=== PATIENT | male | born 1960 | race Caucasian/White ===

== ENCOUNTER → 2018-10-07 11:54 | Outpatient (CLI) | payer BC, SELFPAY ==
--- NOTE | 2018-10-07 12:03 | RAD_ITS ---
STUDY: X-RAY - LUMBAR SPINE REASON FOR EXAM: Male, 58 years old. Back pain. TECHNIQUE: 5 view(s) of the lumbar spine were obtained. COMPARISON: None FINDINGS: Normal lumbar lordosis. There is no substantial scoliosis. There is a normal alignment of the vertebrae. There is multilevel endplate spondylosis of the lumbar vertebrae. Normal disc space heights. The soft tissue structures are unremarkable. RAD/L/S Spine Min 4 Views IMPRESSION: Mild degenerative changes. Electronically Signed: Sulma Mike MD at 8:22 EDT Tel , Service support ,
== END ==
PROVIDERS: Family Provider Family Medicine; PCP Family Medicine; Referring Provider Nurse Practitioner Adult Health; Visit Provider Nurse Practitioner Adult Health
DX: M54.5 Low back pain (principal)
CPT/HCPCS: 72110

== ENCOUNTER → 2018-12-17 | Outpatient (CLI) | payer BC, SELFPAY ==
--- NOTE | 2018-12-17 15:45 | RAD_ITS ---
STUDY: X-RAY - RIGHT ANKLE REASON FOR EXAM: Male, 58 years old. Injury 3 months ago, continued pain TECHNIQUE: 3 view(s) of the ankle. COMPARISON: None. FINDINGS: Normal visualized distal tibia and fibula. Normal medial and lateral malleoli. Normal tibiotalar articulation and ankle mortise. Normal visualized talus and calcaneus. The visualized subtalar, talonavicular, calcaneocuboid and tarsal articulations are normal. The soft tissue structures are unremarkable. RAD/Ankle min 3 Views IMPRESSION: Normal x-ray examination of the ankle. Electronically Signed: Donavon Nye MD at 16:42 EDT , Service support ,
== END | disposition home or self-care (01) ==
PROVIDERS: Family Provider Family Medicine; PCP Family Medicine; Referring Provider Physician Assistant Medical; Visit Provider Physician Assistant Medical
DX: M79.661 Pain in right lower leg (principal)
CPT/HCPCS: 73610

== ENCOUNTER → 2019-01-06 | Outpatient (CLI) | payer OTHER, SELFPAY ==
--- NOTE | 2019-01-06 16:59 | MRI_ITS ---
HISTORY:RIGHT ankle pain s/p injury 3 months ago. Most pain is lateral MRI EXAMINATION OF THE Right ANKLE COMPARISON: Radiographs of the right ankle obtained on December 17, 2018 TECHNIQUE: Axial T1 and T2, sagittal T1 and STIR and coronal fat-suppressed T2 # of images including paperwork:189 FINDINGS: BONES; there is marrow edema with overlying full-thickness articular cartilage loss involving the anteromedial tibial plafond seen in sagittal image 13 series 6 and coronal image 18 series 4. This area measures approximately 5.4 mm transverse and approximately 3.8 cm AP There is also subchondral edema that is seen within the anterior medial talus seen on sagittal image 9 series 6 with overlying articular cartilage loss extending approximately 1.2 cm AP There is also subchondral edema that is seen at the medial aspect of the medial malleolus.. There is no evidence of an acute fracture or dislocation TIBIOTALAR JOINT: There is a minimal joint effusion. Narrowing of the tibiotalar joint.. No loose bodies. SUBTALAR JOINT: There is no subtalar joint effusion. Osteochondral sufaces are intact. No loose bodies. There is narrowing at the posterior facet of the subtalar joint with partial thickness articular cartilage loss seen at the posterior aspect of the talus. There is also minimal subchondral edema is seen at the talus at the middle facet OTHER TARSAL JOINTS: The remainter of the visualized joint of the hindfoot and midfoot show no narrowing or effusion. LIGAMENTS: The anterior tibiofibular ligament is intact. The posterior tlbiofilular ligament is intact The anterior talofibular ligament is intact. There is a small ossicle that is seen deep to the anterior talofibular ligament and I suspect is contained within the ligament The posterior talofibular ligament is intact. The calcaneofibular ligament is intact. The deltoid ligaments are intact. The ligaments of the tarasal sinus are intact. TENDONS: There is fluid surrounding the flexor hallucis longus tendon and muscle at the musculotendinous junction extending distally to the level of the mid calcaneus. Minimal fluid is seen surrounding the flexor hallucis longus and the flexor digitorum tendon at the master knot of Sarbjit. No evidence of tendon tear is noted. There is also minimal fluid surrounding the posterior tibial tendon just distal to the ankle joint. Again no evidence of a tear of the tendons. There is abnormal signal that is seen within the peroneus brevis tendon just past the lateral malleolus with a near full split thickness tear. The tendon is visualized again in its entirety at the level of the distal calcaneus. Minimal fluid surrounds the peroneus brevis tendon at the level of the distal calcaneus. The flexor retinaculum is intact however I do suspect there is minimal stripping at the posterior fibula. The extensor tendons are intact The Achilles tendon is intact PLANTAR APONEUROSIS: The plantar aponeurosis is unremarkable. NEUROVASCULAR STRUCTURES: The posterior tibial neurovascular bundle appears normal, without intinsic or extrinsic masses or foci or signal alteration. IMPRESSION: Findings compatible with at least a partial tear of the peroneus brevis tendon just distal to the lateral malleolus with associated tenosynovitis. Probable mild tenosynovitis involving the posterior tibial as well as the flexor hallucis and flexor digitorum tendons as discussed There is an ossicle that is seen anterior to the distal lateral malleolus and I suspect this is within the anterior talofibular ligament Small tibiotalar joint effusion. There is also articular cartilage loss seen at the anterior medial tibia as well as the anterior medial talus as discussed at 1936 Reported and signed by: Sumi Hodges DO Electronically Signed: Sumi Hodges DO at 19:35 EDT Tel , Service support , MRI/Lower Ext Joint Only (Routine)
== END | disposition home or self-care (01) ==
PROVIDERS: Family Provider Family Medicine; PCP Family Medicine; Referring Provider Physician Assistant Surgical; Visit Provider Physician Assistant Surgical
DX: S93.401A Sprain of unspecified ligament of right ankle, initial encounter (principal)
CPT/HCPCS: 73721

== ENCOUNTER → 2019-05-22 | Outpatient (CLI) | payer BC, SELFPAY ==
[2019-01-09 14:01] VITALS: BMI 26.4
--- NOTE | 2019-05-22 08:30 | MRI_ITS ---
STUDY: MRI BRAIN WITH AND WITHOUT CONTRAST REASON FOR EXAM: Male, 59 years old. Blurry vision, visual loss TECHNIQUE: Standardized multiplanar fat and water weighted pulse sequences were obtained. IV Dotarem 19 was administered for the contrast portion of the examination. COMPARISON: None. FINDINGS: There is mild cerebral atrophy with widening of the extra-axial spaces and ventricular dilatation. Normal white matter tracts of the supratentorial brain. There is no evidence for recent intracranial ischemia or other cause of cytotoxic edema on diffusion weighted imaging (DWI). Normal T2* images of the brain without demonstrated susceptibility artifact. There is no demonstrated hemosiderin stain. Normal bilateral basal ganglia. Normal thalami. There is no extra-axial fluid accumulation. Normal flow voids within the major intracranial circulation suggesting patency by spin echo criteria. Normal venous enhancement. There is no enhancing intra-axial or extra-axial abnormality. 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 Differential diagnosis includes pituitary macroadenoma, pituitary metastasis, craniopharyngioma, or meningioma. Normal tectal plate and pineal gland. Normal midbrain, sandy and medulla. Normal cerebellum. Normal basal cisterns. Normal bilateral temporal bones. Normal bilateral internal auditory canals. No demonstrated orbital abnormality, within the constraints of a routine brain study. Normal visualized paranasal sinuses. Normal calvarium and skull base. Normal visualized soft tissue structures. Normal visualized upper cervical spine. MRI/Brain W/WO Contrast IMPRESSION: 2.0 x 2.0 x 4.0 cm solidly enhancing mass seemingly arising from the right side of the sella turcica with significant suprasellar extension and superior effacement of the optic chiasm. Differential diagnosis includes pituitary macroadenoma, metastasis, meningioma, or craniopharyngioma per Electronically Signed: Gilberto Ashley MD at 13:54 EST Tel , Service support ,
== END | disposition home or self-care (01) ==
PROVIDERS: Family Provider Family Medicine; PCP Family Medicine; Referring Provider Ophthalmology; Visit Provider Ophthalmology
DX: H53.47 Heteronymous bilateral field defects (principal)
CPT/HCPCS: 70553; A9575

== ENCOUNTER → 2019-09-07 | Outpatient (CLI) | payer BC, SELFPAY ==
[2019-01-09 14:01] VITALS: BMI 26.4
[2019-09-07 14:18] LABS: Absolute Lymphocyte Count 0.84 X10^3/uL (0.83-4.51); Absolute Neutrophil Count 4.9 X10^3/uL (2.0-7.7); Basophil# 0.02 X10^3/uL; Basophil% 0.3 % (0-1); Eosinophil# 0.02 X10^3/uL; Eosinophils% 0.3 % (0-5); Hematocrit 49.3 % (40-54); Hemoglobin 15.7 g/dL (13.0-16.5); Lymphocyte # 0.84 X10^3/ul (4.0); Lymphocyte % 13.4 % (19-41); Mean Corp Hgb Conc 31.8 g/dL (32-36); Mean Corpuscular Hgb 29.3 pg (27.0-32.0); Mean Platelet Vol. 10.4 fl (6.2-12.0); Monocyte# 0.43 X10^3/uL; Monocyte% 6.9 % (0-10); NRBC Flagged by Analyzer 0 % (0-5); Neutrophil # 4.94 X10^3/uL (2.7-7.7); Neutrophil % 78.9 % (47-70); Platelet Count 301 K/mm3 (150-450); RBC Distribution Width SD 43.9 fl (35.1-43.9); Red Blood Count 5.36 M/mm3 (4.6-6.2); White Blood Count 6.3 K/mm3 (4.4-11.0)
[2019-09-07 15:07] LABS: ALB/GLOB Ratio 1.2 RATIO (0.9-2.4); AST(SGOT) 11 U/L (15-37); Alanine Aminotransfer ALT/SGPT 29 U/L (16-61); Alkaline Phosphatase 72 U/L (45-117); Anion Gap 8 (5-15); BUN 11 mg/dL (7-18); BUN/Creat Ratio 9.8 RATIO (10-20); Calcium,Total 9.1 mg/dL (8.5-10.1); Chloride 105 mmol/L (98-107); Creatinine, Serum 1.12 mg/dL (0.70-1.30); EST Glomerular Filtration Rate 72 mL/min (>60); Est Glom Filt Rate - Afr Amer 87 mL/min (>60); Free T3 2.7 pg/mL (2.18-3.98); Globulin 3.3 g/dL (2.2-4.2); Glucose 111 mg/dL (74-106); Potassium 4.1 mmol/L (3.5-5.1); Prolactin 3.9 ng/mL; Protein, Total 7.3 g/dL (6.4-8.2); Sodium Level 140 mmol/L (136-145); T4 Free Direct 1.01 ng/dL (0.76-1.46); Thyroid Stim Hormone (TSH) 0.79 uIU/mL (0.358-3.74)
[2019-09-09 20:03] LABS: Adrenocorticotropic Hormone 4.9 pg/mL (7.2-63.3)
== END | disposition home or self-care (01) ==
LOC: MFPLAB 12:24
PROVIDERS: PCP Family Medicine; Referring Provider Family Medicine
DX: E23.6 Other disorders of pituitary gland (principal)
CPT/HCPCS: 36415; 80053; 82024; 84146; 84439; 84443; 84481; 85025

== ENCOUNTER → 2019-10-28 08:50 | Outpatient (CLI) | payer BC, SELFPAY ==
[2019-10-27 09:10] VITALS: BMI 26.4
[2019-10-28 10:31] LABS: Follicle Stimulating Hormone 6.8 mIU/mL; Free T3 3.1 pg/mL (2.18-3.98); Luteinizing Hormone 3.8 mIU/mL; T4 Free Direct 1.03 ng/dL (0.76-1.46); Thyroid Stim Hormone (TSH) 1.05 uIU/mL (0.358-3.74)
[2019-10-31 16:12] LABS: Testosterone, % Free 2.07 % (1.50-4.20); Testosterone, Free 10.58 ng/dL (5.00-21.00)
[2019-11-01 08:11] LABS: Adrenocorticotropic Hormone 31.2 pg/mL (7.2-63.3); Somatomedin C 271 ng/mL (54-194); Testosterone, Total 511 ng/dL (264-916)
== END ==
PROVIDERS: PCP Family Medicine; Referring Provider Internal Medicine Endocrinology, Diabetes & Metabolism; Visit Provider Internal Medicine Endocrinology, Diabetes & Metabolism
DX: E89.3 Postprocedural hypopituitarism (principal); E34.9 Endocrine disorder, unspecified
CPT/HCPCS: 36415; 82024; 82533; 83001; 83002; 84305; 84402; 84403; 84439; 84443; 84481

== ENCOUNTER → 2019-11-26 | Outpatient (CLI) | payer BC, SELFPAY ==
[2019-10-27 09:10] VITALS: BMI 26.4
--- NOTE | 2019-11-26 16:25 | RAD_ITS ---
STUDY: X-RAY CHEST REASON FOR EXAM: Male, 59 years old. Cough TECHNIQUE: Single frontal view of the chest. COMPARISON: 11/25/2013 FINDINGS: Cardiac silhouette unremarkable. Pulmonary vascularity unremarkable. Aorta unremarkable. No focal airspace opacities. No pleural effusions. Upper abdomen unremarkable. Osseous structures intact. No pneumothorax. RAD/Chest PA and Lateral IMPRESSION: No acute cardiopulmonary findings Electronically Signed: Keyon Greene, at 22:00 EDT Tel , Service support ,
== END | disposition home or self-care (01) ==
LOC: MTRAD 16:24
PROVIDERS: PCP Family Medicine; Referring Provider Family Medicine; Visit Provider Family Medicine
DX: R05 Cough (principal)
CPT/HCPCS: 71046

== ENCOUNTER → 2019-12-11 | Outpatient (CLI) | payer BC, SELFPAY ==
[2019-10-27 09:10] VITALS: BMI 26.4
== END | disposition home or self-care (01) ==
PROVIDERS: PCP Family Medicine; Referring Provider Internal Medicine Endocrinology, Diabetes & Metabolism; Visit Provider Internal Medicine Endocrinology, Diabetes & Metabolism
DX: D35.2 Benign neoplasm of pituitary gland (principal)
CPT/HCPCS: 36415; 83003

== ENCOUNTER 2020-05-31 12:00 | Outpatient (RCR) | payer BC, SELFPAY ==
[2019-10-27 09:10] VITALS: BMI 26.4
--- NOTE | 2020-05-02 15:08 | HP.PTEVAL_ITS ---
Patient's Visit Information LEONOR ALARCON is a 60 year old M referred to Physical Therapy by Dr. Benita Chauhan MD with a diagnosis of BACKACHE. Date of Evaluation: 04/29/20 Physical Therapist: Andrade Prasad PT, Cert MDT, OCS - Visit Plan Frequency: 2x /Week Duration: 4 Weeks Plan: PT INTERVNTIONS HUSAM EX'S,DLS ABD/BACK ,LE FLEXABITY ,POSTURAL EX'S,MODALTIES - Subjective This 60 y/o male presents to physical therapy with lumbar pain .Patient lumbar pain with radicular symptoms about 5 months. Patient symptoms radiate to thigh and calf. Patient seen DR recommended PT. Aggraveting factors walking,lifting ,bending.Alleviating factors standing.Patient has seen chiropractor . Bowel/bladder -. Parathesia in thigh. Coughing/sneezing -. Patient had prior PT in past. Patient able to sleep at night okay. Patient symptoms affects ADL's and housework tasks. Patient condition affects QOL. Patient had no x-ray-s . SOCIAL: . VOCATION: [employer] - Pain Bilateral Back Pain Intensity (Out of 10): 3 Pain Intensity Range: 10 Left Lower Extremity Pain Intensity (Out of 10): 3 Pain Intensity Range: 10 Comment: anterior thigh - Objective POSTURE: mild foward posture. GAIT: reciprocal pattern. NEURO: denies parathesia/tingling reflexes L3-4,L4-L5,L5-S1 1/3. SYMMTRIES: align. FLEXABLITY: hams mild tight. MMT: quads/hams/hip 4/5,ankle 5/5. LUMBAR FLEXION : flexion WFL,extension min tight,side glides min tight - Special Tests L/S Slump test left side: Negative L/S Slump test right side: Negative L/S Left Straight Leg Raise: Negative L/S Right Straight Leg Raise: Negative Lumbar Standing: Flexion - Mechanical Response: No effect Lumbar Standing: Flexion - Symptoms During Testing: Increases Lumbar Standing: Flexion - Symptoms After Testing: Worse Comments:: CALF Lumbar Standing: Extension - Mechanical Response: No effect Lumbar Standing: Extension - Symptoms During Testing: Increases Lumbar Standing: Extension - Symptoms After Testing: Centralized Comments:: BACK Lumbar Standing: Right Side Glides - Mechanical Response: Increases motion Lumbar Standing: Right Side [place] - Symptoms During Testing: No effect Lumbar Standing: Right Side [place] - Symptoms After Testing: No effect Lumbar Standing: Left Side [place] - Mechanical Response: No effect Lumbar Standing: Left Side [place] - Symptoms During Testing: No effect Lumbar Standing: Left Side [place] - Symptoms After Testing: No effect Lumbar Lying: Flexion - Mechanical Response: No effect Lumbar Lying: Flexion - Symptoms During Testing: No effect Lumbar Lying: Flexion - Symptoms After Testing: No effect Lumbar Lying: Extension - Mechanical Response: No effect Lumbar Lying: Extension - Symptoms During Testing: Decreases Lumbar Lying: Extension - Symptoms After Testing: No effect - Goals Goal 1:: I with HEP Goal Time Frame: 4-6 Weeks Goal 2:: Improve posture/body mechanics for function. Goal Time Frame: 4-6 Weeks Goal 3:: Patient to decrease lumbar radiculopathy by 70 % or > to improve function. Goal Time Frame: 4-6 Weeks Goal 4:: Patient to improve lumbar ROM for function of recovery Goal Time Frame: 4-6 Weeks Goal 5:: Patient to improve back owestry by 5 points or > to improve function. Goal Time Frame: 4-6 Weeks - Rehabilitation Potential Physical Therapy Diagnosis: This patient appears to have derrangement below knee better with posture correction and extension worse with flexion thus benifit from skilled PT Rehabilitation Potential: Good - Anticipated Interventions Patient/Client Instruction: Educate patient on: Condition, Plan of Care For the Purpose of:: To decrease pain, To increase ROM, To improve muscle performance and motor function, To improve ability to perform ADL's, To increase tolerance to activity/condition/position, To improve ability of physical actions for home/community/work/leisure, To improve gait and locomotor functions, To increase flexibility/ROM, To reduce risk of recurrence, To improve ability to perform tasks related to life management Therapeutic Exercise to Include: Strength training, Postural training, Flexibilty training, Dynamic Lumbar Stabilization, Husam Exercises For the Purpose of:: To decrease pain, To increase ROM, To improve muscle performance and motor function, To increase tolerance to activity/condition/position, To improve ability of physical actions for home/community/work/leisure, To improve health of tissue, To decrease soft tiss ue restriction, To increase flexibility/ROM, To improve ability to perform tasks related to life management TENS: Yes IF ES: Yes Cryotherapy (ice pack, ice massage): Yes Thermo therapy (hot pack): Yes Ultrasound (thermal/non thermal): Yes For the Purpose of:: To decrease pain, To increase ROM, To improve health of tissue, To decrease soft tissue restriction Thank you for the opportunity to evaluate your patient. For Medicare and Medicare HMO plans, please review the plan of care and approve it. It will need to be FAXED BACK to us at [phone] for Medicare purposes. For Medicare only, by signing this I certify the plan of care. Please let me know if there are questions or concerns regarding this plan of care. Physician Signature: Date:
--- NOTE | 2020-05-31 12:37 | HP.PTDCSUM ---
It has been my pleasure to treat LEONOR ALARCON referred by Dr. Benita Chauhan MD, with the diagnosis of BACKACHE for a total of 9 visit(s). Discharge Date: 05/31/20 Please see the following information for a summary of their discharge status. Subjective: Patient doing well .. no pain.. Ready to be d/c to HEP. Bilateral Back Pain Intensity (Out of 10): 0 Left Lower Extremity Pain Intensity (Out of 10): 0 % Improvement: 85 Objective/Function: POSTURE: slouched posture -educated on willi roll. GAIT: normal kaylen. LUMBAR ROM:FLEXION/EXTENSION WFL. MMT: 5/5 BLE QUADS/HAMS/HIP /5 Goal 1:: I with HEP Goal Progress: Goal Met Goal 2:: Improve posture/body mechanics for function. Goal Progress: Goal Met Goal 3:: Patient to decrease lumbar radiculopathy by 70 % or > to improve function. Goal Progress: Goal Met Goal 4:: Patient to improve lumbar ROM for function of recovery Goal Progress: Goal Met Goal 5:: Patient to improve back owestry by 5 points or > to improve function. Goal Progress: Goal Met Plan: D/C Discharge Comments: HEP If there are questions or concerns regarding this patient's physical therapy, please feel free to call me at [phone]. Thank you for the referral of this patient. Sincerely, Andrade Prasad, PT, Cert MDT, OCS
== END 2020-05-31 19:00 | disposition home or self-care (01) ==
LOC: PT 12:00
PROVIDERS: PCP Family Medicine; Referring Provider Family Medicine; Visit Provider Family Medicine
DX: M54.9 Dorsalgia, unspecified (principal)
CPT/HCPCS: 97110; 97162; 97530

== ENCOUNTER → 2020-09-30 10:45 | Outpatient (CLI) | payer BC, SELFPAY ==
[2019-10-27 09:10] VITALS: BMI 26.4
[2020-10-01 09:27] LABS: Eosinophils Count 0.1 x10E3/uL (0.0-0.4)
[2020-10-04 16:08] LABS: Immunoglobulin A 182 mg/dL (90-386); Immunoglobulin G 1067 mg/dL (603-1613); Immunoglobulin M 80 mg/dL (20-172)
[2020-10-04 16:11] LABS: Immunoglobulin E 66 IU/mL (6-495)
== END ==
PROVIDERS: PCP Family Medicine; Referring Provider Family Medicine
DX: T78.40XA Allergy, unspecified, initial encounter (principal)
CPT/HCPCS: 36415; 82784; 82785; 85048

== ENCOUNTER → 2020-11-16 07:49 | Outpatient (CLI) | payer BC, SELFPAY ==
[2019-10-27 09:10] VITALS: BMI 26.4
[2020-11-16 10:56] LABS: AST(SGOT) 11 U/L (15-37); Alanine Aminotransfer ALT/SGPT 22 U/L (16-61); Albumin, Serum 3.8 g/dL (3.2-5.0); Alkaline Phosphatase 62 U/L (45-117); Anion Gap 5 (5-15); BUN 10 mg/dL (7-18); Calcium,Total 8.8 mg/dL (8.5-10.1); Chloride 105 mmol/L (98-107); Creatinine, Serum 1.11 mg/dL (0.70-1.30); EST Glomerular Filtration Rate 72 mL/min (>60); Est Glom Filt Rate - Afr Amer 87 mL/min (>60); Follicle Stimulating Hormone 6.6 mIU/mL; Free T3 3.2 pg/mL (2.18-3.98); Globulin 3.7 g/dL (2.2-4.2); Glucose 101 mg/dL (74-106); Luteinizing Hormone 4.6 mIU/mL; Potassium 3.7 mmol/L (3.5-5.1); Prolactin 6.7 ng/mL; Protein, Total 7.5 g/dL (6.4-8.2); Sodium Level 139 mmol/L (136-145); T4 Free Direct 0.98 ng/dL (0.76-1.46); Thyroid Stim Hormone (TSH) 1.51 uIU/mL (0.358-3.74)
[2020-11-22 12:08] LABS: Testosterone, % Free 3.53 % (1.50-4.20); Testosterone, Free 15.74 ng/dL (5.00-21.00)
[2020-11-22 15:14] LABS: Adrenocorticotropic Hormone 36.2 pg/mL (7.2-63.3); Insulin Like Growth Factor 199 ng/mL (68-247); Testosterone, Total 446 ng/dL (264-916)
== END ==
PROVIDERS: PCP Family Medicine; Referring Provider Internal Medicine Endocrinology, Diabetes & Metabolism; Visit Provider Internal Medicine Endocrinology, Diabetes & Metabolism
DX: E89.3 Postprocedural hypopituitarism (principal); E34.9 Endocrine disorder, unspecified
CPT/HCPCS: 36415; 80053; 82024; 82533; 83001; 83002; 84146; 84305; 84402; 84403; 84439; 84443; 84481

== ENCOUNTER 2021-10-24 08:29 | Outpatient (CLI) | payer BC, SELFPAY ==
[2021-10-24 10:44] LABS: Alanine Aminotransfer ALT/SGPT 24 U/L (16-61); Cholesterol 186 mg/dL (200); EST Glomerular Filtration Rate 81 mL/min (>60); Est Glom Filt Rate - Afr Amer 98 mL/min (>60); High Density Lipoprotein 44 mg/dL; PSA,Total- Diagnostic 6.13 ng/mL (0.0-4.0); Triglycerides 68 mg/dL; Very Low Density Lipoprotein 14 mg/dL (5-40)
[2021-10-24 11:18] LABS: Hepatitis C Antibody Non-Reactive (Nonreactive)
== END 2021-10-24 23:59 | disposition home or self-care (01) ==
LOC: MFPLAB 08:30
PROVIDERS: PCP Family Medicine; Referring Provider Family Medicine; Visit Provider Family Medicine
DX: Z00.00 Encounter for general adult medical examination without abnormal findings (principal); Z11.59 Encounter for screening for other viral diseases; Z12.5 Encounter for screening for malignant neoplasm of prostate
CPT/HCPCS: 36415; 80061; 82565; 84153; 84460; 86803

== ENCOUNTER → 2021-12-12 | Outpatient (CLI) | payer BC, SELFPAY ==
[2021-12-12 13:05] LABS: PSA,Total- Diagnostic 5.07 ng/mL (0.0-4.0)
== END | disposition home or self-care (01) ==
LOC: MFPLAB 11:10
PROVIDERS: PCP Family Medicine; Visit Provider Family Medicine
DX: R97.20 Elevated prostate specific antigen [PSA] (principal)
CPT/HCPCS: 36415; 84153

== ENCOUNTER → 2022-10-22 | Outpatient (CLI) | payer BC, SELFPAY ==
[2022-10-22 12:41] LABS: ALB/GLOB Ratio 1.2 RATIO (0.9-2.4); AST(SGOT) 15 U/L (15-37); Alanine Aminotransfer ALT/SGPT 23 U/L (16-61); Alkaline Phosphatase 65 U/L (45-117); Anion Gap 3 (5-15); BUN 10 mg/dL (7-18); BUN/Creat Ratio 10.2 RATIO (10-20); Chloride 108 mmol/L (98-107); Cholesterol 196 mg/dL (200); Creatinine, Serum 0.98 mg/dL (0.70-1.30); EST Glomerular Filtration Rate 83 mL/min (>60); Est Glom Filt Rate - Afr Amer 100 mL/min (>60); Globulin 3.4 g/dL (2.2-4.2); Glucose 89 mg/dL (74-106); High Density Lipoprotein 44 mg/dL; PSA,Total- Diagnostic 6.24 ng/mL (0.0-4.0); Potassium 3.8 mmol/L (3.5-5.1); Protein, Total 7.4 g/dL (6.4-8.2); Sodium Level 139 mmol/L (136-145); Triglycerides 90 mg/dL; Very Low Density Lipoprotein 18 mg/dL (5-40)
== END | disposition home or self-care (01) ==
LOC: MTLAB 09:19
PROVIDERS: PCP Family Medicine; Referring Provider Family Medicine; Visit Provider Family Medicine
DX: Z00.00 Encounter for general adult medical examination without abnormal findings (principal); R97.20 Elevated prostate specific antigen [PSA]
CPT/HCPCS: 36415; 80053; 80061; 84153

== ENCOUNTER 2023-04-21 17:03 | Emergency (ER) | payer BC, SELFPAY ==
[2023-04-21 17:04] VITALS: BP 142/97; PULSE 92; RESP 14; TEMP 36.2; O2SAT 97; BMI 25.6
--- NOTE | 2023-04-21 17:17 | EDS_ITS ---
<Statement entered by Roxanne Lane MD - 04/21/23 21:00> I have personally performed a face to face assessment of the patient and have reviewed the ULYSSES Note. Patient presents after fall from approximately 3 rungs up on a ladder. Injury occurred a couple hours ago. He did not strike his head and has no loss of consciousness. He complains of pain to his right wrist as well as his right hip. He states his tetanus shot is up-to-date. Head and neck examination feels no external sign of trauma. Heart is regular rate and rhythm. Lung sounds are clear. Abdomen is soft and nontender. Right upper extremity examination reveals hematoma over the extensor surface of the right wrist. There is a superficial laceration. He has good cap refill and can wiggle all fingers. Normal sensation noted. No tenderness at the elbow. Right lower extremity examination reveals mild tenderness to the right hip. Good range of motion and equal leg lengths. X-rays of the right hand, wrist, and right hip are obtained. Per my interpretation no obvious evidence of fracture on any study. Radiology feels there is a cortical irregularity along the proximal surface of the third, fou rth, and fifth metacarpals. Given this with the overlying hematoma wound is cleansed and he is covered with an antibiotic. He is placed in a Velcro wrist splint. He will follow-up with orthopedics. Patient is comfortable with the plan. HPI HPI - Fall History of Present Illness Chief Complaint: Fall Narrative Narrative: A few hours ago patient fell off a stepladder approximately 3 rungs up onto his right side. Knee struck his head but denies LOC. No blood thinners. He has no headache, visual changes, nausea or vomiting. He presents due to right upper extremity pain and his right hip feels tight but he is able to ambulate. No weakness or paresthesias. He has a wound on his right hand that he cleansed and dressed with bacitracin and a bandage. Tetanus is up-to-date. 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 Hypothyroid Home Medications multivitamin,[id number] (Complete Multivitamin tablet) 1 tab PO DAILY 10/15/19 [History Last Taken Unknown] saw palmetto 160 mg capsule 160 mg PO BID 10/15/19 [History Last Taken Unknown] doxycycline hyclate 100 mg tablet 100 mg PO BID 5 days #10 tabs 04/21/23 [Rx Last Taken Unknown] Allergy/AdvReac Type Severity Reaction Status Date / Time levothyroxine sodium Allergy Mild dye Verified 04/21/23 17:06 Penicillins Allergy Mild rash Verified 04/21/23 17:06 Family History Mother CVA (cerebral vascular accident) Diabetes Thyroid cancer Sister Diabetes Hypertension Grandmother Diabetes Father Parkinsons Surgical History History of herniorrhaphy Pituitary mass Status post transsphenoidal hypophysectomy Social History Smoking Status: Never smoker alcohol intake: never substance use type: does not use ROS ROS ED ROS Narrative Eyes: Negative for visual change. GI: Negative for nausea, vomiting. Neuro: Negative for headache, motor/sensory dysfunction. Skin: Positive for wound. Musc: Positive for right shoulder and hand pain, swelling, trauma. Heme: Negative for easy bruising, bleeding, lymphadenopathy. EXAM Physical Exam Narrative Exam Narrative: CONST: Patient sitting in no acute distress. ENT: PERRLA, EOMI, head normocephalic atraumatic, no raccoon eyes or mckee sign, no hemotympanum, no nasal septal hematoma, no CSF otorrhea or rhinorrhea. NECK: Normal inspection. No midline spinal tenderness, no step off or crepitus. RESP: No respiratory distress, CTAB. CVS: Regular rate and rhythm, no murmur, no gallop. Chest wall nontender. ABD: Soft and nontender, no guarding or rebound, nondistended. Back: Normal inspection, no midline tenderness. SKIN: Color normal, no rash, warm, dry, intact. EXTREMITIES: Swelling, abrasion, and tenderness right dorsal hand. Otherwise extremities are nontender, full range of motion, 2+ radial and DP pulses. Compartments soft. NEURO: Oriented x4. PSYCH: Normal affect. Const Vital Signs: 04/21/23 17:04 04/21/23 17:12 Temperature 97.2 F L Temperature Source Temporal Pulse Rate 92 Respiratory Rate 14 Respiratory Effort Normal Non-Labored Respiratory Depth Normal Respiratory Pattern Normal Blood Pressure 142/97 H Blood Pressure Mean 112 Pulse Ox 97 Oxygen Delivery Method Room Air Room Air MDM MDM MDM Narrative Medical decision making narrative: History gathered from: Patient and spouse Patient had a fall off a stepladder onto his right side. He is awake and alert. GCS 15. No signs stable. He has no signs of head injury and is neurologically intact I do not think a CT scan of the brain is indicated. There is abrasion and swelling over the right dorsal hand with tenderness. Neurovascularly intact. He also reports right hip tenderness which I cannot reproduce. There is no shortening or rotation. He is ambulatory. Distal pulses intact. On my interpretation of the right wrist and hand there are no acute fractures or dislocation. Radiology noted cortical irregularity at the bases of the 3/4/5 metacarpals but I cannot appreciate this so I do not think he needs a formal Ortho-Glass splint but will put him in a cock-up wrist splint as well as plans and dressed the hand wound and cover with doxycycline for potential for open fracture. Right hip x-ray is negative. Radiology noted an irregularity of the right greater trochanter not a fracture and this is likely chronic changes. Patient states he is established with [facility] and will call them on Saturday for follow-up . He was discharged in stable condition. Radiography Diagnostic Testing: Clinical Impression(s) from Imaging Studies Hand X-Ray 04/21/23 17:30 IMPRESSION: Cortical irregularity of the bases of the third, fourth, and fifth metacarpals likely indicating nondisplaced, perhaps impacted fractures. Electronically Signed: Marlo Lang DO at 18:16 EDT , Hip/Pelvis X-Ray 04/21/23 17:30 IMPRESSION: Subtle cortical irregularity of the right greater trochanter without discrete fracture identified. A nondisplaced fracture cannot be entirely excluded. Electronically Signed: Marlo Lang DO at 18:18 EDT , Wrist X-Ray 04/21/23 17:30 IMPRESSION: Cortical irregularity of the bases of the third, fourth, and fifth metacarpals likely indicating nondisplaced, perhaps impacted fractures. Electronically Signed: Marlo Lang DO at 18:16 EDT , Discharge Plan Triage Chief Complaint: Fall ED Midlevel Provider: Avani Good ED Provider: Roxanne Lane Dx/Rx/DC Orders Clinical Impression: Fracture of metacarpal, multiple sites, right hand, closed, Contusion of right hip Instructions: ED Closed Hand Fracture (Adult) Prescriptions: New doxycycline hyclate 100 mg tablet 100 mg PO BID 5 Days Qty: 10 0RF No Action Complete Multivitamin Tablet 1 tab PO DAILY saw palmetto 160 mg capsule 160 mg PO BID Rx Instructions: give with meal/snack Primary Care Provider: Vitaliy Batres Referrals: Vitaliy Batres MD [Primary Care Provider] - Chapin Chi MD [Med Staff - Active Staff] - Activity Restrictions/Additional Instructions: Call the orthopedic doctor for follow-up appointment for reevaluation of your hand. Keep the wound clean and covered. If you develop signs of infection like redness swelling pus fever or increased pain come back to the emergency room Disposition Disposition: Home, Self Care
--- NOTE | 2023-04-21 17:30 | RAD_ITS ---
EXAM: XR RIGHT HIP WITH PELVIS WHEN PERFORMED, 2 OR 3 VIEWS CLINICAL INDICATION: pain TECHNIQUE: Two or three views of the right hip with pelvis when performed. COMPARISON: No relevant prior studies available. FINDINGS: BONES/JOINTS: Subtle cortical irregularity of the right greater trochanter without discrete fracture identified. Mild degenerative changes in the lower lumbar spine and symmetrically at the bilateral SI joints. Mild degenerative changes of the bilateral hips with mild acetabular sclerosis and right greater than left acetabular hypertrophy. No widening of the pubic symphysis. SOFT TISSUES: No significant abnormality. No soft tissue swelling or gas. RAD/HIP, UNI W/ Pelvis 2-3 Views IMPRESSION: Subtle cortical irregularity of the right greater trochanter without discrete fracture identified. A nondisplaced fracture cannot be entirely excluded. Electronically Signed: Marlo Lang DO at 18:18 EDT ,
--- NOTE | 2023-04-21 17:30 | RAD_ITS ---
EXAM: XR RIGHT HAND COMPLETE, 3 OR MORE VIEWS CLINICAL INDICATION: pain TECHNIQUE: Frontal, lateral and oblique views of the right hand. COMPARISON: Wrist on the same date. FINDINGS: BONES/JOINTS: Cortical irregularity of the bases of the third, fourth, and fifth metacarpals likely indicating nondisplaced, perhaps impacted fractures. Preservation of the joint space. No sclerotic or destructive changes observed. SOFT TISSUES: Dorsal soft tissue swelling. No radiopaque foreign body. RAD/Hand Min 3 Views IMPRESSION: Cortical irregularity of the bases of the third, fourth, and fifth metacarpals likely indicating nondisplaced, perhaps impacted fractures. Electronically Signed: Marlo Lang DO at 18:16 EDT ,
--- NOTE | 2023-04-21 17:30 | RAD_ITS ---
EXAM: XR RIGHT WRIST COMPLETE, 3 OR MORE VIEWS CLINICAL INDICATION: pain TECHNIQUE: Frontal, lateral and oblique views of the right wrist. COMPARISON: Hand on the same date. FINDINGS: BONES/JOINTS: Cortical irregularity of the bases of the third, fourth, and fifth metacarpals likely indicating nondisplaced, perhaps impacted fractures. Preservation of the joint space. No sclerotic or destructive changes observed. SOFT TISSUES: Significant dorsal soft tissue swelling in the hand and wrist. No radiopaque foreign body. RAD/Wrist min 3 Views IMPRESSION: Cortical irregularity of the bases of the third, fourth, and fifth metacarpals likely indicating nondisplaced, perhaps impacted fractures. Electronically Signed: Marlo Lang DO at 18:16 EDT ,
== END 2023-04-21 18:46 | disposition home or self-care (01) ==
PROVIDERS: Emergency Provider Emergency Medicine; PCP Family Medicine; Visit Provider Emergency Medicine
DX: S62.312A Displaced fracture of base of third metacarpal bone, right hand, initial encounter for closed fracture (principal); S70.01XA Contusion of right hip, initial encounter; E03.9 Hypothyroidism, unspecified; S62.314A Displaced fracture of base of fourth metacarpal bone, right hand, initial encounter for closed fracture; S62.316A Displaced fracture of base of fifth metacarpal bone, right hand, initial encounter for closed fracture; Z79.890 Hormone replacement therapy; W11.XXXA Fall on and from ladder, initial encounter
CPT/HCPCS: 29125; 73110; 73130; 73502; 99283

== ENCOUNTER → 2023-05-17 | Outpatient (CLI) | payer BC, SELFPAY ==
[2023-05-17 10:47] LABS: ALB/GLOB Ratio 1.3 RATIO (0.9-2.4); AST(SGOT) 13 U/L (15-37); Alanine Aminotransfer ALT/SGPT 24 U/L (16-61); Albumin, Serum 4.1 g/dL (3.2-5.0); Alkaline Phosphatase 68 U/L (45-117); Anion Gap 4 (5-15); BUN 14 mg/dL (7-18); BUN/Creat Ratio 14.4 RATIO (10-20); Chloride 107 mmol/L (98-107); Creatinine, Serum 0.98 mg/dL (0.70-1.30); EST Glomerular Filtration Rate 83 mL/min (>60); Est Glom Filt Rate - Afr Amer 101 mL/min (>60); Follicle Stimulating Hormone 10.2 mIU/mL; Free T3 2.3 pg/mL (2.18-3.98); Globulin 3.2 g/dL (2.2-4.2); Glucose 80 mg/dL (74-106); Luteinizing Hormone 4.5 mIU/mL; Protein, Total 7.3 g/dL (6.4-8.2); Sodium Level 139 mmol/L (136-145); T4 Free Direct 0.91 ng/dL (0.76-1.46); Thyroid Stim Hormone (TSH) 1.58 uIU/mL (0.358-3.74)
[2023-05-23 09:09] LABS: Adrenocorticotropic Hormone 37.6 pg/mL (7.2-63.3); Testosterone, % Free 3.18 % (1.50-4.20); Testosterone, Free 12.91 ng/dL (5.00-21.00); Testosterone, Total 406 ng/dL (264-916)
== END | disposition home or self-care (01) ==
LOC: MTLAB 07:14
PROVIDERS: PCP Family Medicine; Referring Provider Internal Medicine Endocrinology, Diabetes & Metabolism; Visit Provider Internal Medicine Endocrinology, Diabetes & Metabolism
DX: E89.3 Postprocedural hypopituitarism (principal)
CPT/HCPCS: 36415; 80053; 82024; 82533; 83001; 83002; 84402; 84403; 84439; 84443; 84481

== ENCOUNTER → 2023-08-15 | Outpatient (CLI) | payer BC, SELFPAY ==
[2023-08-17 08:13] LABS: PSA, Free % 27.1 % (.)
== END | disposition home or self-care (01) ==
LOC: MFPLAB 13:48
PROVIDERS: PCP Family Medicine; Visit Provider Urology
DX: N40.1 Benign prostatic hyperplasia with lower urinary tract symptoms (principal)
CPT/HCPCS: 36415; 84153; 84154

== ENCOUNTER → 2023-10-04 | Outpatient (CLI) | payer BC, SELFPAY ==
[2023-10-04 16:15] LABS: PSA,Total - Annual Screen 6.38 ng/mL (0.00-4.00)
== END | disposition home or self-care (01) ==
LOC: MTLAB 11:37
PROVIDERS: PCP Family Medicine; Referring Provider Registered Nurse; Visit Provider Registered Nurse
DX: R35.0 Frequency of micturition (principal)
CPT/HCPCS: 36415; 84153; G0103

== ENCOUNTER → 2024-04-24 | Outpatient (CLI) | payer BC, SELFPAY ==
[2024-04-24 10:26] LABS: Absolute Lymphocyte Count 1.26 X10^3/uL (0.83-4.51); Absolute Neutrophil Count 3.1 X10^3/uL (2.0-7.7); Basophil# 0.02 X10^3/uL; Basophil% 0.4 % (0-1); Eosinophil# 0.09 X10^3/uL; Eosinophils% 1.9 % (0-5); Hematocrit 48.6 % (40-54); Hemoglobin 15.7 g/dL (13.0-16.5); Lymphocyte # 1.26 X10^3/ul (0.83-4.51); Mean Corp Hgb Conc 32.3 g/dL (32-36); Mean Corpuscular Hgb 30.3 pg (27.0-32.0); Mean Corpuscular Volume 93.6 fL (80-94); Mean Platelet Vol. 11.2 fl (6.2-12.0); Monocyte# 0.39 X10^3/uL; Monocyte% 8.1 % (0-10); NRBC Flagged by Analyzer 0 % (0-5); Neutrophil # 3.06 X10^3/uL (2.7-7.7); Neutrophil % 63.2 % (47-70); Platelet Count 249 K/mm3 (150-450); RBC Distribution Width SD 44.8 fl (35.1-43.9); Red Blood Count 5.19 M/mm3 (4.6-6.2); White Blood Count 4.8 K/mm3 (4.4-11.0)
[2024-04-24 11:09] LABS: ALB/GLOB Ratio 1.1 RATIO (0.9-2.4); AST(SGOT) 12 U/L (15-37); Alanine Aminotransfer ALT/SGPT 21 U/L (16-61); Albumin, Serum 3.9 g/dL (3.2-5.0); Alkaline Phosphatase 65 U/L (45-117); Anion Gap 5 (5-15); BUN 16 mg/dL (7-18); BUN/Creat Ratio 16.5 RATIO (10-20); Calcium,Total 9.2 mg/dL (8.5-10.1); Chloride 108 mmol/L (98-107); Creatinine, Serum 0.97 mg/dL (0.70-1.30); EST Glomerular Filtration Rate 84 mL/min (>60); Est Glom Filt Rate - Afr Amer 101 mL/min (>60); Globulin 3.4 g/dL (2.2-4.2); Glucose 89 mg/dL (74-106); Protein, Total 7.3 g/dL (6.4-8.2); Sodium Level 140 mmol/L (136-145)
[2024-05-07 15:09] LABS: Adrenocorticotropic Hormone 11.3 pg/mL (7.2-63.3); Testosterone, Total 425 ng/dL (264-916)
== END | disposition home or self-care (01) ==
LOC: MTLAB 08:53
PROVIDERS: PCP Family Medicine; Referring Provider Family Medicine; Visit Provider Family Medicine
DX: I10 Essential (primary) hypertension (principal); R79.89 Other specified abnormal findings of blood chemistry
CPT/HCPCS: 36415; 80053; 82024; 84402; 84403; 85025

== ENCOUNTER → 2024-04-27 | Outpatient (CLI) | payer BC, SELFPAY ==
[2024-05-04 12:08] LABS: Cortisol, Free 24Ur 62 ug/24 hr (5-64); Cortisol, Urinary Free 41 ug/L (Undefined)
== END | disposition home or self-care (01) ==
PROVIDERS: PCP Family Medicine; Referring Provider Family Medicine; Visit Provider Family Medicine
DX: I10 Essential (primary) hypertension (principal); R79.89 Other specified abnormal findings of blood chemistry
CPT/HCPCS: 81050; 82530

== ENCOUNTER → 2024-05-12 | Outpatient (CLI) | payer BC, SELFPAY ==
[2024-05-12 16:18] LABS: ALB/GLOB Ratio 1.2 RATIO (0.9-2.4); AST(SGOT) 18 U/L (15-37); Alanine Aminotransfer ALT/SGPT 28 U/L (16-61); Albumin, Serum 3.8 g/dL (3.2-5.0); Alkaline Phosphatase 64 U/L (45-117); Anion Gap 7 (5-15); BUN 16 mg/dL (7-18); BUN/Creat Ratio 14.4 RATIO (10-20); Calcium,Total 8.9 mg/dL (8.5-10.1); Chloride 104 mmol/L (98-107); Creatinine, Serum 1.11 mg/dL (0.70-1.30); EST Glomerular Filtration Rate 71 mL/min (>60); Est Glom Filt Rate - Afr Amer 86 mL/min (>60); Free T3 2.4 pg/mL (2.18-3.98); Globulin 3.3 g/dL (2.2-4.2); Glucose 126 mg/dL (74-106); Potassium 3.9 mmol/L (3.5-5.1); Protein, Total 7.1 g/dL (6.4-8.2); Sodium Level 137 mmol/L (136-145); T4 Free Direct 0.85 ng/dL (0.76-1.46); Thyroid Stim Hormone (TSH) 0.899 uIU/mL (0.358-3.740)
[2024-05-12 16:41] LABS: Follicle Stimulating Hormone 11.5 mIU/mL; Luteinizing Hormone 4.5 mIU/mL
[2024-05-23 16:09] LABS: Insulin Like Growth Factor 153 ng/mL (64-240); Testosterone, % Free 4.01 % (1.50-4.20); Testosterone, Free 12.23 ng/dL (5.00-21.00); Testosterone, Total 305 ng/dL (264-916)
== END | disposition home or self-care (01) ==
LOC: MTLAB 12:33
PROVIDERS: PCP Family Medicine; Referring Provider Internal Medicine Endocrinology, Diabetes & Metabolism; Visit Provider Internal Medicine Endocrinology, Diabetes & Metabolism
DX: E89.3 Postprocedural hypopituitarism (principal)
CPT/HCPCS: 36415; 80053; 82533; 83001; 83002; 84305; 84402; 84403; 84439; 84443; 84481

== ENCOUNTER → 2024-12-24 | Outpatient (CLI) | payer BC, SELFPAY ==
[2024-12-24 10:59] LABS: Microalbumin,Random Urine < 12.0 mg/L (NO RANGE EST.); Microalbumin:Creatinine Ratio UNABLE TO CALCULATE mg/g CRE
[2024-12-24 11:15] LABS: ALB/GLOB Ratio 1.7 RATIO (0.9-2.4); AST(SGOT) 16 U/L (<=37); Alanine Aminotransfer ALT/SGPT 17 U/L (<=46); Albumin, Serum 4.2 g/dL (3.4-4.8); Alkaline Phosphatase 58 U/L (40-129); Anion Gap 10 (5-15); BUN 16 mg/dL (4-19); BUN/Creat Ratio 16.1 RATIO (10-20); Carbon Dioxide 23.8 mmol/L (21.0-32.0); Chloride 106 mmol/L (98-108); Cholesterol 205 mg/dL (<=200); Creatinine, Serum 0.99 mg/dL (0.70-1.20); EST Glomerular Filtration Rate 86 (>60); Globulin 2.5 g/dL (2.2-4.2); Glucose 82 mg/dL (70-99); High Density Lipoprotein 39 mg/dL; Low Density Lipoprotein Calc. 146 mg/dL; PSA,Total - Annual Screen 7.27 ng/mL (0.02-4.00); Potassium 3.8 mmol/L (3.3-5.1); Protein, Total 6.7 g/dL (5.9-8.4); Sodium Level 140 mmol/L (133-145); Total Bilirubin 0.66 mg/dL (0.00-1.30); Triglycerides 98 mg/dL; Very Low Density Lipoprotein 20 mg/dL (5-40); cholesterol:hdl ratio screen 5.26
== END | disposition home or self-care (01) ==
LOC: MTLAB 08:31
PROVIDERS: PCP Family Medicine; Referring Provider Family Medicine; Visit Provider Family Medicine
DX: I10 Essential (primary) hypertension (principal); N40.0 Benign prostatic hyperplasia without lower urinary tract symptoms
CPT/HCPCS: 36415; 80053; 80061; 82043; 82570; 84153; G0103